=== PATIENT | male | born 1970 | race Caucasian/White ===

== ENCOUNTER → 2020-12-23 | Outpatient (CLI) | payer OTHER | LOC: HEART 5 11:41 | DX: J44.9 Chronic obstructive pulmonary disease, unspecified (principal); Z86.16 Personal history of COVID-19 | CPT/HCPCS: 71046; 94060; 94729 ==

== ENCOUNTER → 2021-01-13 | Outpatient (CLI) | payer OTHER | LOC: CT 08:18 → KOH-I 01-14 13:00 | DX: R06.02 Shortness of breath (principal); R91.8 Other nonspecific abnormal finding of lung field | CPT/HCPCS: 71250 ==

== ENCOUNTER → 2021-03-01 | Outpatient (CLI) | payer OTHER | LOC: SLEEP-COR 09:55 | DX: Z86.69 Personal history of other diseases of the nervous system and sense organs (principal) | CPT/HCPCS: 95810 ==